=== PATIENT | female | born 1985 | race Caucasian/White ===

== ENCOUNTER 2017-12-27 16:46 | Emergency (ER) | payer OTHER ==
[2017-12-27] MEDS ORDERED: Ondansetron ODT TAB* 4 MG PO ONE (17:13)
[2017-12-27] MEDS ORDERED: Morphine VIAL* 4 MG/ML VIAL (1 ml vial) IV ONE (17:13)
--- NOTE | 2017-12-27 18:17 | RAD ---
HISTORY: RT 5TH FINGER/HAND INJURY COMPARISONS: None VIEWS: 4, Frontal, lateral, and oblique views of the right hand FINDINGS: BONE DENSITY: Normal. BONES: There is a probable fracture of the head of the fifth middle phalanx. JOINTS: There is no arthropathy. There is dislocation of the fifth DIP joint. ALIGNMENT: There is no dislocation. SOFT TISSUES: Unremarkable. OTHER FINDINGS: None. IMPRESSION: FIFTH DIP JOINT DISLOCATION WITH PROBABLE FRACTURE OF THE HEAD OF THE MIDDLE PHALANX OF THE FIFTH DIGIT
--- NOTE | 2017-12-27 18:32 | ED ---
Upper Extremity Pain - HPI Summary HPI Summary: Patient complains of laceration and deformity to distal right fifth digit after getting it caught between a boat and dock today at 3:30 PM. Denies loss of sensation. No anti-coag. Reading controlled. - History of Current Complaint Chief Complaint: EDExtremityUpper Stated Complaint: HAND INJURY Time Seen by Provider: 12/27/17 17:29 Hx Obtained From: Patient, Family/District Court Judge Mechanism Of Injury: Direct Blow Onset/Duration: Started Hours Ago Timing: Constant Severity Currently: Severe Pain Location: Finger Character: Sharp, Throbbing Aggravating Factor(s): Movement Alleviating Factor(s): Nothing Associated Signs & Symptoms: Positive: Negative - Allergies/Home Medications Allergies/Adverse Reactions: Allergies Allergy/AdvReac Type Severity Reaction Status Date / Time No Known Allergies Allergy Verified 12/27/17 17:31 PMH/Surg Hx/FS Hx/Imm Hx Endocrine/Hematology History: Denies: Hx Anticoagulant Therapy Cardiovascular History: Denies: Hx Cardiac Arrest Respiratory History: Denies: Hx Lung Cancer History: Denies: Hx Acute Renal Failure EENT History: Denies: Hx Deafness Neurological History: Denies: Hx CVA Infectious Disease History: No Infectious Disease History: Denies: Traveled Outside the [place] in Last 30 Days - Social History Alcohol Use: Occasionally Substance Use Type: Reports: None Smoking Status (MU): Never Smoked Tobacco Review of Systems Constitutional: Negative Eyes: Negative ENT: Negative Cardiovascular: Negative Respiratory: Negative Gastrointestinal: Negative Genitourinary: Negative Positive: Other Skin: Negative Neurological: Negative Psychological: Normal All Other Systems Reviewed And Are Negative: Yes Physical Exam - Summary Physical Exam Summary: Obvious wound and deformity to DIP of right fifth digit. Open wound along the dorsal and medial aspect of PIP of fifth right digit. Bony fragment palpable. Patient able to flex and extend distal portion of right fifth digit. Sensation intact on right fifth digit. Patient able to do move proximal right fifth digit. No apparent deformity swelling, ecchymosis to other digits of right hand. Small laceration to volar surface of the second phalanx of right fourth digit Triage Information Reviewed: Yes Vital Signs On Initial Exam: Initial Vitals Temp Pulse Resp BP Pulse Ox 98.6 F 80 20 136/82 100 12/27/17 16:50 12/27/17 16:50 12/27/17 16:50 12/27/17 16:50 12/27/17 16:50 Vital Signs Reviewed: Yes Appearance: Positive: Well-Appearing Skin: Positive: Warm Head/Face: Positive: Normal Head/Face Inspection Eyes: Positive: Normal Neck: Positive: Supple Respiratory/Lung Sounds: Positive: Clear to Auscultation Cardiovascular: Positive: Normal Abdomen Description: Positive: Nontender Musculoskeletal: Positive: Other Neurological: Positive: Normal Psychiatric: Positive: Normal AVPU Assessment: Alert - Cary Coma Scale Best Eye Response: 4 - Spontaneous Best Motor Response: 6 - Obeys Commands Best Verbal Response: 5 - Oriented Coma Scale Total: 15 Procedures - Joint Reduction Right Joint Reduction Site: other - finger Specify Other Joint Reduced: rt 5th digit dip Conscious Sedation: No Reduction Attempts: 2 Pre-Procedure NV Exam: Yes Post Joint Reduction Film: joint reduced - Laceration/Wound Repair 1 Location: upper extremity Description: Irregular Anesthesia: Digital, 1.0% Length, Depth and Shape: [id number] Betadine Prep?: Yes Irrigated w/ Saline (ccs): 40 - saline + hibiclens Laceration/Wound Explored: clean Debridement: minimal Number of Sutures: 7 - 5.0 ethilon Layer Closure?: No Diagnostics - Vital Signs Vital Signs Temp Pulse Resp BP Pulse Ox 12/27/17 17:36 20 12/27/17 17:35 152/87 12/27/17 16:50 98.6 F 80 20 136/82 100 - Laboratory Lab Statement: Any lab studies that have been ordered have been reviewed, and results considered in the medical decision making process. - Radiology hand Xray Interpretation: Positive (See Comments) - Fifth DIP joint dislocation with probable fracture of the head of the middle phalanx of the fifth digit Radiology Interpretation Completed By: Radiologist post reduction Xray Interpretation: Positive (See Comments) - Persistent DIP dislocation Radiology Interpretation Completed By: Radiologist post reduction 2 Xray Interpretation: No Acute Changes - Successful reduction Radiology Interpretation Completed By: ED Physician Course/Dx - Course Course Of Treatment: Patient complains of laceration and deformity to distal right fifth digit after getting it caught between a boat and dock today at 3:30 PM. Denies loss of sensation. No anti-coag. Reading controlled. PE: Obvious wound and deformity to DIP of right fifth digit. Patient cannot flex or extend distal portion of right fifth digit. Sensation intact on right fifth digit. Patient able to do move proximal right fifth digit. No apparent deformity swelling, ecchymosis to other digits of right hand. Discussed patient with Dr. Samuels who recommended reduction, antibiotics, wrap finger and follow-up in clinic Friday. Reduction performed. Ancef 1 g IV. Rx for Keflex and hydrocodone. Follow-up follow-up with Dr. Samuels on clinic Friday. - Diagnoses Provider Diagnoses: Fracture, finger, open, Laceration, Dislocation of distal interphalangeal (DIP ) joint of finger - Physician Notifications Discussed Care of Patient With: Kaya Samuels - ortho Discharge - Sign-Out/Discharge Documenting (check all that apply): Discharge/Admit/Transfer - Discharge Plan Condition: Stable Disposition: HOME Prescriptions: Cephalexin CAP* [Keflex CAP*] 500 mg PO TID 10 Days #30 cap HYDROcodone/ACETAMIN 5-325 MG* [Kittery 5-325 TAB*] 1 tab PO Q6H PRN 10 Days #6 tab MDD 4-5 tabs PRN Reason: Pain Patient Education Materials: Finger Fracture (ED), Finger Dislocation (ED), Stitches Removal (ED) Referrals: No Primary Care Phys,NOPCP [Primary Care Provider] - Kaya Samuels MD [Medical Doctor] - Additional Instructions: Follow-up with orthopedics on Friday. Take antibiotics as directed. Return to the ED for any new or worsening symptoms. - Billing Disposition and Condition Condition: STABLE Disposition: Home
[2017-12-27] MEDS ORDERED: Tetan/Diph/Pertus SYR(Tdap)* 0.5 ML SYR(BOOSTRIX) use SYR IM ONE (18:39)
[2017-12-27] MEDS ORDERED: ceFAZolin 500 MG VIAL(*) 500 MG VIAL IM ONE (18:55)
[2017-12-27] MEDS ORDERED: ceFAZolin 1 GM in Dextrose (*) 1 GM/50 ML BAG IVPB ONE (19:04)
[2017-12-27] MEDS ORDERED: Bacitracin OINTMENT* 0.5% 0.5 oz TUBE TOPICAL ONE (20:10)
--- NOTE | 2017-12-27 20:41 | RAD ---
HISTORY: post reduction COMPARISONS: December 27, 2017 at 5:49 PM VIEWS: 3, Frontal, lateral, and oblique views of the fifth digit of the right hand FINDINGS: BONE DENSITY: Normal. BONES: There is a bone fragment consistent with fracture. The donor site may be of the asymmetry of the distal phalanx or the head of the middle phalanx. JOINTS: There is no arthropathy. ALIGNMENT: There is persistent dislocation of the fifth DIP joint. SOFT TISSUES: Unremarkable. OTHER FINDINGS: None. IMPRESSION: PERSISTENT DISLOCATION OF THE FIFTH PIP JOINT. BONE FRAGMENT CONSISTENT WITH FRACTURE, THE DONOR SITE MAY BE THE BASE OF THE DISTAL PHALANX OF THE HEAD OF THE PROXIMAL PHALANX
[2017-12-27] MEDS ORDERED: Lidocaine 1%* 5 ML VIAL INJ ONE (21:38)
[2017-12-27] MEDS ORDERED: Bacitracin OINTMENT* 0.5% 0.5 oz TUBE ONE (22:13)
[2017-12-27] MEDS ORDERED: HYDROcodone/ACETAMIN 5-325 MG* 1 TAB PO ONE (22:50)
[2017-12-27 23:07] VITALS: BP 127/92
--- NOTE | 2017-12-28 07:33 | RAD ---
HISTORY: post reduction COMPARISONS: December 29, 2012 at 8:03 PM VIEWS: 3, Frontal, lateral, and oblique views of the fifth digit of the right hand at 10:34 PM FINDINGS: BONE DENSITY: Normal. BONES: The fracture fragment noted on the previous examination is not well-visualized on the submitted images. JOINTS: There is no arthropathy. ALIGNMENT: There is been interval reduction of the fifth DIP dislocation. SOFT TISSUES: Unremarkable. OTHER FINDINGS: None. IMPRESSION: INTERVAL REDUCTION OF FIFTH DIP DISLOCATION
== END 2017-12-27 23:06 | disposition home or self-care (01) ==
LOC: ED 16:46
DX: S62.636B Displaced fracture of distal phalanx of right little finger, initial encounter for open fracture (principal); W23.0XXA Caught, crushed, jammed, or pinched between moving objects, initial encounter; Z23 Encounter for immunization
CPT/HCPCS: 12002; 26750; 73140; 90471; 90715; 96365; 96375; 99283; A9270-GY; J0690; J2270

== ENCOUNTER 2017-12-30 08:06 | Day surgery (SDC) | payer OTHER ==
--- NOTE | 2017-12-29 17:00 | HP ---
PREOPERATIVE HISTORY AND PHYSICAL: DATE OF SURGERY/ADMISSION: 12/30/17 [facility] ATTENDING SURGEON: Kaya Samuels MD * (DICTATED BY EDILBERTO URBAN) PROCEDURE: Right small finger irrigation and debridement, open reduction and pinning, extensor tendon repair. CHIEF COMPLAINT: Crush injury to right pinky. HISTORY OF PRESENT ILLNESS: This is a 32-year-old female who sustained injury to her right pinky finger on 12/27/17 when she got it crushed between her boat and the dock. She was seen at [facility] and had some x-rays which showed an open dislocation of the DIP joint. She had the wound clean, sutured, and the joint reduced. The patient reports that the joint was unstable and had to be reduced twice. A postreduction x-ray does show it to be concentrically reduced, but there is a large dorsal fragment presumably attached to her extensor tendon. She has been using oxycodone for pain and has been on Keflex since the injury. After evaluation by Dr. Samuels and review of x-rays, the patient has consented to proceed with surgical intervention at this time for best outcome. PAST MEDICAL HISTORY: Hypoglycemia, food controlled. PAST SURGICAL HISTORY: None. CURRENT MEDICATIONS: Advil p.r.n. ALLERGIES: No known drug allergies. FAMILY HISTORY: Heart disease, hypertension, and stroke. 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 She denies tobacco use and recreational drug use. She does drink alcohol on occasion. REVIEW OF SYSTEMS: General: Negative for fevers, chills, or night sweats, unexplained weight loss or gain. No known anesthesia problems. HEENT: Negative for headache, lightheadedness, syncopal episodes, or visual changes. Integumentary: Negative for abrasions, lesions, or open wounds. Cardiothoracic : Negative for hypertension, chest pain, palpitations, or edema. Respiratory: Negative for shortness of breath with exertion, chronic cough, COPD. GI: Negative for nausea, vomiting, diarrhea, constipation, or GERD. : Negative for nocturia, urinary frequency, urgency, history of UTIs, or kidney problems. Musculoskeletal: Positive for current complaint. Negative for chronic or intermittent back pain or history of fractures. Neurological: Negative for paresthesias, numbness, history of seizure, stroke, or poor balance. Endocrine : Negative for diabetes and thyroid issues. Hematologic: Negative for easy bruising, anemia, bleeding disorders, history of DVT. Infectious Disease: Negative for history of MRSA, hepatitis C, or HIV. PHYSICAL EXAMINATION GENERAL: Well-developed, well-nourished 32-year-old female in no acute distress. VITAL SIGNS: Height is 5 feet 2 inches, weight 160 pounds. Blood pressure 120/ 68. HEENT: Normocephalic, atraumatic. Pupils are equal, round, and reactive to light and accommodation. Extraocular movements are intact. NECK: Supple. No palpable lymph nodes. Throat is clear. PULMONARY: Lungs are clear to auscultation bilaterally. No wheezes, rales, or rhonchi. CARDIOVASCULAR: Regular rate and rhythm. S1 and S2. No murmurs, rubs, or gallops. No edema. ABDOMEN: Positive bowel sounds. Soft, nontender. NEUROLOGICAL: Alert and oriented x3. Cranial nerves II through XII are intact. Sensation is intact to light touch. MUSCULOSKELETAL: On exam of her right small finger, there is a significant crush injury with a laceration. She cannot extend the DIP joint. Skin is sutured with minimal bloody drainage. Neurovascular function is intact. Motion at the PIP joint is very limited. The remainder of her hand is in good condition, but she does have a small abrasion and a laceration of her ring finger as well. IMAGING STUDIES: X-rays AP, lateral, and oblique of the right small finger shows pre and postreduction images and before reduction, the dislocation of the DIP joint, there is a small dorsal fracture fragment from the distal phalanx. IMPRESSION: Crush injury of the right little finger with DIP dislocation and extensor tendon laceration. PLAN: The patient is scheduled to undergo a right small finger irrigation and debridement, open reduction and pinning, extensor tendon repair with Dr. Samuels on 12/30/17. She will return to the office 10 days postop for followup and suture removal. A prescription for Percocet was e-scribed to the patient's pharmacy for postoperative pain management. EDILBERTO URBAN [id number]/[facility] #: [id number] [facility] HOSPITALNando
[2017-12-30] MEDS ORDERED: ceFAZolin 2 GM PREMIX (*) 2 GM/50 ML BAG IVPB ONE (08:38)
[2017-12-30] MEDS ORDERED: fentaNYL* 50 MCG/ML 2 ML VIAL (100 MCG VIAL) ONE (09:12)
[2017-12-30] MEDS ORDERED: Midazolam* 1 MG/ML 2 ML VIAL (2 MG) ONE (09:12)
[2017-12-30] MEDS ORDERED: Propofol* 10 MG/ML 20 ML BTL IV PUSH ONE ×2 (09:41→11:09)
[2017-12-30] MEDS ORDERED: Naloxone* 0.4 MG/ML 1 ML VIAL IV PRN (09:54)
[2017-12-30] MEDS ORDERED: Lidocaine 1% INJ* 10 MG/ML 30 ML SDV ONE (10:02)
[2017-12-30] MEDS ORDERED: oxyCODONE/Acetamin 5/325 MG* TAB ONE (11:42)
[2017-12-30] MEDS ORDERED: Ibuprofen TAB* 600 MG ONE (11:43)
[2017-12-30 11:47] VITALS: BP 102/80
--- NOTE | 2017-12-30 15:23 | RAD ---
INDICATION: Right hand, fifth digit trauma COMPARISONS: December 27, 2017 TECHNIQUE: Fluoroscopy was provided for a surgical procedure. Total fluoroscopy time is: 54 seconds FINDINGS: Spot images demonstrate percutaneous fixation of the fifth DIP joint. IMPRESSION: FLUOROSCOPY WAS PROVIDED FOR A SURGICAL PROCEDURE CPT II Codes: G9500
--- NOTE | 2017-12-31 08:36 | OP ---
CC: Dr. Samuels OPERATIVE REPORT: DATE OF OPERATION: 12/30/17 DATE OF : 83 SURGEON: Kaya Samuels MD PRE-OP DIAGNOSES: Crushing injury of the right small finger with distal interphalangeal joint disloc ation and extensor tendon laceration. POST-OP DIAGNOSES: Crushing injury of the right small finger with distal interphalangeal joint dislo cation and extensor tendon laceration with significant cartilage loss from the distal phalanx and mid dle phalanx at the distal interphalangeal joint. OPERATIVE PROCEDURE: Irrigation and debridement of the right small finger and open reduction and pin alfredo of the DIP joint. OPERATIVE FINDINGS: The flexor digitorum profundus was intact. The artery on the radial aspect of t he small finger was lacerated, but the nerve was intact, although significantly stretched. The DIP j oint had marked cartilage loss with 50% of the cartilage missing from the distal phalanx and 40% of t he cartilage missing from the middle phalanx. The extensor tendon was macerated. DESCRIPTION OF PROCEDURE: The patient was brought to the operating room, was given a sedation anesth etic and a digital block with 10 cc of 1% plain lidocaine. The skin of her right hand and forearm wa s prepped and draped in the usual sterile fashion. The hand and forearm were exsanguinated and the t ourniquet elevated to 250 mmHg. The sutures were removed and the wound was explored. The digital ne rve on the radial aspect of the finger was intact, but significantly stretched. Other findings are n oted above. The wound was copiously irrigated with a liter of saline and some of the macerated skin was debrided. The DIP joint was reduced and then pinned with a single 0.035-inch K-wire. The patien t will need in the future a DIP joint fusion, but in the face of the dirty nature of the wound, I did not think that was a good idea to do today. Therefore, the wound again was copiously irrigated with saline and the skin edges were approximated with 4-0 nylon suture. The position of the DIP joint and the pin were checked on the C-arm in AP and lateral views and found to be satisfactory. The wound w as dressed with Xeroform, 4x4, Webril, and Alumafoam splint. The patient tolerated the procedure wel l and was brought to the recovery room in good condition. [id number]/[facility] #: [id number]
== END 2017-12-30 12:05 | disposition home or self-care (01) ==
LOC: OREAST 08:06
PROVIDERS: ATTEND Orthopaedic Surgery
DX: S67.196A Crushing injury of right little finger, initial encounter (principal); S63.296A Dislocation of distal interphalangeal joint of right little finger, initial encounter; S56.427A Laceration of extensor muscle, fascia and tendon of right little finger at forearm level, initial encounter; E16.2 Hypoglycemia, unspecified; W23.1XXA Caught, crushed, jammed, or pinched between stationary objects, initial encounter
CPT/HCPCS: 76000; 81025; A9270-GY; C1776; J0690; J2250; J2704; J3010

== ENCOUNTER 2018-02-13 09:28 | Day surgery (SDC) | payer OTHER ==
--- NOTE | 2018-02-09 14:30 | HP ---
PREOP HISTORY AND PHYSICAL: DATE OF ADMISSION: 02/13/18 [facility] CHIEF COMPLAINT: Right little finger pain. HISTORY OF PRESENT ILLNESS: Karen is a 32-year-old female who suffered an injury of her right little finger, was crushed between her boat and the dock. She had initial treatment with washout and pinning of the DIP joint. The DIP joint surface was completely destroyed by the injury. She had an extensive wound. So, it was decided to just pin the DIP joint, allow the wound to heal, and now she is ready to proceed with DIP fusion of the right small finger. PAST MEDICAL HISTORY: Hypoglycemia, controlled with food. PAST SURGICAL HISTORY: Right small finger washout and pinning. MEDICATIONS: P.r.n. Advil. ALLERGIES: No known drug allergies. FAMILY HISTORY: Heart disease, hypertension, and stroke. SOCIAL HISTORY: She works as a teacher at [employer]. Denies tobacco and recreational drug use. Occasionally drinks alcohol. REVIEW OF SYSTEMS: Negative for cephalic, cardiovascular, respiratory, gastrointestinal, genitourinary, other musculoskeletal, skin, neurologic, endocrine, and hematologic symptoms. PHYSICAL EXAMINATION GENERAL: She is a healthy-appearing, very pleasant female, in minimal distress at rest. VITAL SIGNS: Height is 5 feet 2 inches, weight 160. Blood pressure today was 102/80, pulse 72. HEENT: Unremarkable. Her eye movements are concentric. NECK: She has good range of motion of her neck without pain. No masses are palpated. LUNGS: Clear to auscultation. Good inspiratory effort. No wheezing. CARDIAC: Regular rate and rhythm without murmur. PERIPHERAL VASCULAR: She has palpable pulses and no peripheral edema. EXTREMITIES: Her right little finger wound is healed. She has clean pin site. She has a lot of stiffness at the PIP joint. NEUROLOGIC: She is alert and oriented without focal deficits. IMPRESSION: Right small finger crush injury. PLAN: For right small finger distal interphalangeal joint fusion. The surgical procedure, risks, and benefits were explained to the patient today and she agrees to proceed. I will see her back in followup for recheck approximately 10 days postop. [id number]/[facility] #: [id number] MTDD
[~2018-02-13 09:28] MED LIST: Buffered Lidocaine 0.9% SYRIN* 5 ML/SYR SYRINGE INTRADERM ONE; Famotidine IV* 10 MG/ML 2 ML (20 mg) IV ONE; Lidocaine 1% INJ* 10 MG/ML 30 ML SDV ONE
[2018-02-13] MEDS ORDERED: ceFAZolin 2 GM PREMIX (*) 2 GM/50 ML BAG IVPB ONE (09:37)
[2018-02-13] MEDS ORDERED: Famotidine IV* 10 MG/ML 2 ML (20 mg) ONE (09:37)
[2018-02-13] MEDS ORDERED: oxyCODONE TAB* 5 MG TAB PO PRN (10:18)
[2018-02-13] MEDS ORDERED: DiMENhydriNATE IV* 50 MG/ML VIAL IV PUSH PRN (10:18)
[2018-02-13] MEDS ORDERED: Naloxone* 0.4 MG/ML 1 ML VIAL IV PRN (10:18)
[2018-02-13] MEDS ORDERED: Acetaminophen TAB* 325 MG PO PRN (10:18)
[2018-02-13] MEDS ORDERED: fentaNYL* 50 MCG/ML 2 ML VIAL (100 MCG VIAL) ONE (10:47)
[2018-02-13] MEDS ORDERED: Lidocaine 2% PF * 5 ML VIAL ONE (10:48)
[2018-02-13] MEDS ORDERED: Ketorolac INJ* 30 MG/ML 1 ML VIAL ONE (10:48)
[2018-02-13] MEDS ORDERED: Midazolam* 1 MG/ML 5 ML VIAL (5 MG) ONE (10:48)
[2018-02-13] MEDS ORDERED: Propofol* 10 MG/ML 20 ML BTL IV PUSH ONE (10:48)
[2018-02-13] MEDS ORDERED: Ondansetron INJ* 2 MG/ML VIAL ONE (10:48)
[2018-02-13 12:41] VITALS: BP 116/77
--- NOTE | 2018-02-13 23:18 | OP ---
CC: Dr. Samuels OPERATIVE REPORT: DATE OF OPERATION: 02/13/18 DATE OF : 83 SURGEON: Dr. Samuels AEROSPACE ENGINEER OFFICER ARMAMENT: EDILBERTO Lanza ANESTHESIA: Local MAC. PRE-OP DIAGNOSIS: Crushed injury of the right small finger with articular surface destruction at the distal interphalangeal joint. POST-OP DIAGNOSIS: Crushed injury of the right small finger with articular surface destruction at th e distal interphalangeal joint. OPERATIVE PROCEDURE: Right small finger distal interphalangeal fusion. ESTIMATED BLOOD LOSS: Zero. TOURNIQUET TIME: About 25 minutes. INDICATION FOR PROCEDURE: Karen is a 32-year-old female who injured her right little finger a few weeks ago. She crushed it between her boat and dock. Initial surgery was for wash out and attempte d extensor tendon repair, but there was complete articular surface loss at the DIP joint so that fing er was simply pinned until the wound was well healed and clean, and she presents now for DIP fusion o f the right small finger. DESCRIPTION OF PROCEDURE: The patient was brought to the operating room, was given a digital block a nesthetic after a sedation anesthetic. The digital block was with 10 cc of 1% plain lidocaine. The skin of her right hand and forearm was prepped and draped in the usual sterile fashion. The finger w as exsanguinated with a tourniquet. Tourniquet was left in place for the entire case. An H shaped i ncision was made on the dorsal aspect of the DIP joint and it was dissected through the subcutaneous tissue. The pin that had been placed prior was partially removed and then the remaining articular ca rtilage was removed from the surface of the middle and distal phalanx. The drill for the micro Acutr ak was then used to open up the cortex of the distal phalanx and a 16 mm micro Acutrak screw was plac ed across the joint with the joint held in approximation. The position of the screw was checked on t he AP and lateral views and found to be intramedullary and centralized and the position of the finger was quite good. The wound was irrigated and skin edges were reapproximated with 4-0 nylon suture. The wound was dressed with Xeroform, 4x4, Webril and a Alumafoam splint. The patient tolerated the p rocedure well and was brought to the recovery room in good condition. [id number]/[facility] #: [id number]
== END 2018-02-13 12:57 | disposition home or self-care (01) ==
LOC: OREAST 09:28
PROVIDERS: ATTEND Orthopaedic Surgery
DX: S67.196D Crushing injury of right little finger, subsequent encounter (principal); V94.89XD Other water transport accident, subsequent encounter; Y92.89 Other specified places as the place of occurrence of the external cause; E16.1 Other hypoglycemia
CPT/HCPCS: 76000; 81025; 88300; C1713; J0690; J1885; J2250; J2405; J2704; J3010

== ENCOUNTER 2018-11-26 17:49 | Inpatient (IN) | payer OTHER ==
[2018-11-26] MEDS ORDERED: Buffered Lidocaine 1% SYRIN* 1 ML/SYRINGE INTRADERM ONE (19:55)
[2018-11-26] MEDS ORDERED: Lactated Ringers 1000 ML Bag* 1,000 ML IV ONE (19:55)
[2018-11-26] MEDS ORDERED: Lactated Ringers 1000 ML Bag* 1,000 ML IV SCH (20:00)
[2018-11-26] MEDS ORDERED: Oxytocin in LR* 20 UNITS/1,000 ML BAG IVPB SCH (20:00)
--- NOTE | 2018-11-26 20:00 | HP ---
General Information - Reason for Visit induction of labor - General Information Maternal Age: 33 Grav: 1 Para: 0 SAB: 0 IEA: 0 Estimated Due Date: 11/28/18 Determined By: LMP Maternal Blood Type and Rh: A Negative - Results this Serology/RPR Result: Non-Reactive Rubella Result: Immune HBsAg Result: Negative HIV Result: Negative GBS Culture Result: Negative Past Medical History Delivery History: See Records Pertinent Past Medical History: See Records Pertinent Past Surgical History: See Records Pertinent Family History: See Records - Antepartal Records Antepartal Records: Reviewed, Uncomplicated Review of Systems Constitutional: Comfortable CV Complaint: No Respiratory: Shortness of Breath: No Gastrointestinal: No Nausea/Vomiting, Normal Bowel Movement Genitourinary: No Dysuria, No Bleeding, No Leaking Fluid Musculoskeletal: No Complaint Neurological: No Headache Movement: Normal Exam Allergies/Adverse Reactions: Allergies Faulk Allergy (Uncoded 02/13/18 09:49) Rash T: 98.5 P: 84 RR: 20 BP 145/84 - Measurements Height: 5 ft 2 in Weight: 190 lb Weight in lbs: 190.237783 Body Mass Index (BMI): 34.7 Pre- Weight: 155 lb Weight Gained This : 35 lbs and 0 ozs - Exam Breast: Breast Exam Deferred CVA: No CVA Tenderness Extremities: No Edema Heart: Normal Rhythm/Heart Sounds HEENT: No Significant Findings Lungs: Clear Bilaterally Rectal: Rectal Exam Deferred Reflexes: DTR 2+ Thyroid: No Thyromegaly - Abdominal Exam Abdomen Exam: Non-Tender - Ultrasound/Biophysical Profile Ultrasound Status: Not Done Targeted Exam Findings Cervical Exam: 3cm Effacement: 80% Station: -2 Presenting Part: Vertex Membrane Status: Intact EFM Findings - External Monitor Findings Baseline Heart Rate: 140 External Monitor Findings: Accelerations Present, No Pattern of Variable or Late Decelerations, Variability Moderate Contractions: None Assessment/Plan - Assessment Pt 33 yo G1 presents for labor induction at 39 5/7 weeks - Plan Plan: Induction, Admit - Anticipate Vaginal Delivery
[2018-11-26 21:23] LABS: ABS Eosinophils 0.1 10^3/ul (0-0.6); ABS Lymphocytes 2.1 10^3/ul (1.0-4.8); ABS Monocytes 0.7 10^3/ul (0-0.8); ABS Neutrophils 6.2 10^3/ul (1.5-7.7); Eosinophil % 0.7 %; Hematocrit 37 % (35-47); Hemoglobin 12.8 g/dL (12.0-16.0); Mean Corpuscular HGB Conc 35 g/dL (31-36); Mean Corpuscular Hemoglobin 31 pg (27-31); Mean Corpuscular Volume 90 fL (80-97); Mean Platelet Volume 8.7 fL (7.4-10.4); Nucleated Red Blood Cells % 0.1; Platelet Count 308 10^3/uL (150-450); Red Blood Count 4.12 10^6 /uL (3.70-4.87); Red Cell Distribution Width 14 % (10.5-15); White Blood Count 9.1 10^3/uL (3.5-10.8)
[2018-11-26] MEDS ORDERED: OBEPIDURAL* 250 ML EPIDURAL ONE (23:56)
[2018-11-27] MEDS ORDERED: Bupivacaine 0.25% SDV PF* 10 ML VIAL INJ ONE (00:15)
[2018-11-27] MEDS ORDERED: Sodium Citrate/Citric Acid* 15 ML UDC PO PRN (00:41)
[2018-11-27] MEDS ORDERED: Lactated Ringers 1000 ML Bag* 1,000 ML IV ONE (00:41)
[2018-11-27] MEDS ORDERED: EPHEDrine (Pressors)* 50 MG/ML VIAL IV PUSH PRN (00:41)
[2018-11-27] MEDS ORDERED: Famotidine TAB* 20 MG PO PRN (00:41)
[2018-11-27] MEDS ORDERED: Phenylephrine 40 MCG/ML SYRINGE IV PUSH PRN (00:41)
[2018-11-27] MEDS ORDERED: OBEPIDURAL* 250 ML EPIDURAL SCH (01:00)
[2018-11-27] MEDS ORDERED: Lactated Ringers 1000 ML Bag* 1,000 ML IV SCH ×2 (01:00→12:00)
[2018-11-27] MEDS ORDERED: ceFOXitin 2 GM IVPREMIX* 0 GM/0 ML BAG ONE (10:20)
[2018-11-27] MEDS ORDERED: Glycerin ADULT SUPP PR PRN (11:55)
[2018-11-27] MEDS ORDERED: Witch Hazel PAD* JAR TOPICAL PRN (11:55)
[2018-11-27] MEDS ORDERED: Acetaminophen TAB* 325 MG PO PRN (11:55)
[2018-11-27] MEDS ORDERED: Dibucaine 1% 28.35 GM TUBE PR PRN (11:55)
[2018-11-27] MEDS ORDERED: RHO D Immune Globulin (HUMAN)* 300 MCG = 1,500 I.U. INJ IM ONE (11:55)
[2018-11-27] MEDS ORDERED: Oxytocin in LR* 20 UNITS/1,000 ML BAG IVPB SCH (12:00)
--- NOTE | 2018-11-27 12:05 | PROCNOTE ---
[facility] OB: Delivery Note - Delivery A Date of : 11/27/18 Time of : 11:11 [place] Sex: Female Weight at : 7 lb 12 oz Score 1 Minute: 5 Score 5 Minutes: 8 Gestational Age in Weeks and Days at Delivery: 39 Weeks and 6 Days Delivery Method: Spontaneous Vaginal Labor: Induced Did Patient attempt ?: N/A, No Previous Amniotic Fluid: Clear Estimated Blood Loss: 350 Anesthesia/Analgesia: CEI for Labor Delivered By: Natalia Mcdaniel - Nursery Level of Nursery: Special Care - Perineum Perineal Injury: Periurethral Laceration, 1st Degree Perineal Injury Comment: repair with 4.0 velosorb after 10 cc 1 % Lidocaine Perineal Repair: By Delivering Practioner - tight nuchal cord X 1 / terminal meconium - Events Delivery Events of Note: Pitocin During Labor, Supplemental O2 to Mother - Additional Delivery Notes Additional Delivery Notes: tight nuchal cord reduced at perineum/ cord clamped and baby handed off field to warmer/ neonatology consulted.
[2018-11-27] MEDS ORDERED: Simethicone TAB* 80 MG TAB.CHEW PO SCH (12:30)
[2018-11-27] MEDS: Ibuprofen TAB* 600 MG PO PRN ×2 (12:33→19:38)
[2018-11-27] MEDS ORDERED: Lidocaine 1% INJ* 10 MG/ML 30 ML SDV ONE (13:43)
[2018-11-27] MEDS: Docusate CAP* 100 MG PO SCH ×2 (14:39→21:23)
[2018-11-28] MEDS: Ibuprofen TAB* 600 MG PO PRN ×4 (01:46→21:46)
[2018-11-28 07:35] LABS: ABS Eosinophils 0.1 10^3/ul (0-0.6); ABS Lymphocytes 2.1 10^3/ul (1.0-4.8); ABS Monocytes 0.7 10^3/ul (0-0.8); ABS Neutrophils 9.4 10^3/ul (1.5-7.7); Eosinophil % 0.4 %; Hematocrit 31 % (35-47); Hemoglobin 10.4 g/dL (12.0-16.0); Lymphocyte % 17.4 %; Mean Corpuscular HGB Conc 33 g/dL (31-36); Mean Corpuscular Hemoglobin 30 pg (27-31); Mean Corpuscular Volume 91 fL (80-97); Platelet Count 237 10^3/uL (150-450); Red Blood Count 3.44 10^6 /uL (3.70-4.87); Red Cell Distribution Width 14 % (10.5-15); White Blood Count 12.3 10^3/uL (3.5-10.8)
[2018-11-28] MEDS: Docusate CAP* 100 MG PO SCH ×3 (08:40→21:46)
[2018-11-28] MEDS ORDERED: Ferrous Gluconate TAB* 324 MG TAB PO SCH (09:00)
[2018-11-29] MEDS: Ibuprofen TAB* 600 MG PO PRN ×2 (04:04→10:07)
[2018-11-29 07:28] VITALS: BP 124/83
[2018-11-29] MEDS: Docusate CAP* 100 MG PO SCH (10:06)
== END 2018-11-29 11:00 | disposition home or self-care (01) | DRG 807 ==
LOC: MCHOBOUT 17:49 → MCHOB 18:50
PROVIDERS: ADMIT Obstetrics & Gynecology; ATTEND Obstetrics & Gynecology
PROC: 10E0XZZ Delivery of Products of Conception, External Approach (ICD-10-PCS; principal; 2018-11-27)
PROC: 3E033VJ Introduction of Other Hormone into Peripheral Vein, Percutaneous Approach (ICD-10-PCS; 2018-11-27)
PROC: 10907ZC Drainage of Amniotic Fluid, Therapeutic from Products of Conception, Via Natural or Artificial Opening (ICD-10-PCS; 2018-11-27)
PROC: 0HQ9XZZ Repair Perineum Skin, External Approach (ICD-10-PCS; 2018-11-27)
DX: O77.0 Labor and delivery complicated by meconium in amniotic fluid (principal); Z37.0 Single live birth; O69.81X0 Labor and delivery complicated by cord around neck, without compression, not applicable or unspecified; O71.82 Other specified trauma to perineum and vulva; Z3A.39 39 weeks gestation of pregnancy
CPT/HCPCS: 36415; 85025; 86850; 86900; 86901; A9270-GY; J0694; J3490